=== PATIENT | male | born 1955 | race Two or more races ===

== ENCOUNTER 2023-08-26 19:26 | Emergency (ER) | payer OTHER ==
[~2023-08-26] VITALS: Ht 172.7 cm; Wt 86.2 kg
[2023-08-26] MEDS ORDERED: GLUMETZA500 MG PO (20:11)
[2023-08-26] MEDS ORDERED: [UNRECOGNIZED DRUG - OTHER] (20:12)
[2023-08-26] MEDS ORDERED: LISINOPRIL5 MG PO (20:12)
== END 2023-08-26 22:30 | disposition home or self-care (01) ==
LOC: ER 19:27 → EDBD 19:27 → ER 22:11
DX: L03.90 Cellulitis, unspecified (principal); L08.9 Local infection of the skin and subcutaneous tissue, unspecified; T14.8XXA Other injury of unspecified body region, initial encounter; Z88.5 Allergy status to narcotic agent
CPT/HCPCS: 96372; 99282; J0696; J1885